=== PATIENT | female | born 1975 | race Caucasian/White ===

== ENCOUNTER → 2025-05-08 | Outpatient (CLI) | payer BC, SELFPAY ==
--- NOTE | 2025-05-08 08:15 | XR_ITS ---
Examination: Screening digital mammography, bilateral Computer aided detection 3-D breast Tomosynthesis, bilateral Date and time of exam: May 08, 2025 6 0750 hours Compared to mammograms dating to July 09, 2016 Indication: Screening Technique: Nonmagnified MLO, CC views of the breasts to been obtained, reconstructed from 3-D Tomosynthesis images. R2 computer aided detection program utilized for evaluation of suspicious masses and/or abnormal calcifications. 3-D Tomosynthesis images obtained. Findings: The breasts are heterogeneously dense, which may obscure small masses 3 cm oval mass partially circumscribed upper outer left breast Impression: BI-RADS Category 0: Incomplete: Need additional imaging evaluation Recommend follow-up spot tomographic views of 3 cm mass upper outer left breast as well as bilateral breast sonography to complete the workup
== END | disposition home or self-care (01) ==
PROVIDERS: PCP Nurse Practitioner Family; Referring Provider Nurse Practitioner Family; Visit Provider Nurse Practitioner Family
DX: Z12.31 Encounter for screening mammogram for malignant neoplasm of breast (principal); N63.21 Unspecified lump in the left breast, upper outer quadrant
CPT/HCPCS: 77063; 77067

== ENCOUNTER → 2025-08-01 | Outpatient (CLI) | payer BC, SELFPAY ==
--- NOTE | 2025-08-01 12:30 | XR_ITS ---
Examination: Breast ultrasound complete, bilateral Date and time of exam: August 01, 2025, 1213 hours INDICATIONS: Mammogram May 08, 2025 3 cm oval mass partially circumscribed upper outer left breast, prior breast sonography November 02, 2021 BI-RADS 4 suspicious mass 2 o'clock position left breast, lumpectomy 2021 negative Technique: Real-time grayscale ultrasonographic imaging bilateral breasts, including all 4 quadrants as well as nipple retroareolar and axillary regions. Findings: Sonographic images right breast Retroareolar cyst 5 x 3 mm 11:00 cyst 6 x 4 mm No solid nodules Sonographic images left breast 2:00 cyst 27 x 17 mm Retroareolar cyst 5 x 5 mm 3:00 circumscribed nodule 4 x 3 mm Retroareolar circumscribed nodule 4 x 4 millimeter 3.3 cm left axillary lymph node Smaller cysts IMPRESSION: BI-RADS Category 2: Benign findings
--- NOTE | 2025-08-01 13:30 | XR_ITS ---
Examination: Diagnostic digital mammography, unilateral, left Computer aided detection 3-D breast Tomosynthesis, unilateral Date and time of exam: August 01, 2025, 1254 hours INDICATIONS: Mammogram May 08, 2025 3 cm focal asymmetry upper outer left breast Technique: Nonmagnified MLO, CC views of the left breast have been obtained, reconstructed from 3-D Tomosynthesis images. R2 computer aided detection program utilized for evaluation of suspicious masses and/or abnormal calcifications. 3-D Tomosynthesis images obtained. Findings: The breast is heterogeneously dense, which may obscure small masses Focal asymmetry upper outer left breast likely corresponds to 2:00 cyst 27 mm described on left breast sonogram today Impression: BI-RADS category 2: Benign findings Return to yearly follow-up mammography
== END | disposition home or self-care (01) ==
PROVIDERS: PCP Physician Assistant; Referring Provider Physician Assistant; Visit Provider Physician Assistant
DX: R92.322 Mammographic fibroglandular density, left breast (principal)
CPT/HCPCS: 76641; 77061; 77065; G0279